=== PATIENT | male | born 1965 ===

== ENCOUNTER 2020-03-12 03:35 | Emergency (ER) | payer BC ==
[2020-03-12] MEDS ORDERED: ONDANSETRON HCL INJ/PF 4 MG/2 ML SDV IV ONE (04:56)
[2020-03-12] MEDS ORDERED: NORMAL SALINE 1000 ML 1,000 ML IV ONE (04:56)
[2020-03-12 05:32] LABS: ABSOLUTE LYMPHOCYTES (AUTO) 1.7 10^3/uL (0.5-4.7); ABSOLUTE MONOCYTES (AUTO) 0.6 10^3/uL (0.1-1.4); ABSOLUTE NEUT (AUTO) 2.3 10^3/uL (1.7-8.2); BASOPHILS % (AUTO) 0.5 % (0-2); HEMATOCRIT 49.6 % (37.9-51.0); HEMOGLOBIN 16.9 g/dL (13.5-17.0); LYMPHOCYTES % (AUTO) 37.1 % (13-45); MEAN CORPUSCULAR HEMOGLOBIN 30.1 pg (27.0-33.4); MEAN CORPUSCULAR VOLUME 88 fl (80-97); MONOCYTES % (AUTO) 13.5 % (3-13); PLATELET COUNT 147 10^3/uL (150-450); RED BLOOD COUNT 5.61 10^6/uL (4.35-5.55); SEGMENTED NEUTROPHILS % (AUTO) 48.9 % (42-78); TOTAL CELLS COUNTED % (AUTO) 100 %; WHITE BLOOD COUNT 4.6 10^3/uL (4.0-10.5)
[2020-03-12 05:53] LABS: ALKALINE PHOSPHATASE 56 U/L (38-126); ANION GAP 13 (5-19); ASPARTATE AMINO TRANSFERASE 68 U/L (17-59); BILIRUBIN,DIRECT 0.2 mg/dL (0.0-0.4); BILIRUBIN,TOTAL 1.3 mg/dL (0.2-1.3); BLOOD UREA NITROGEN 19 mg/dL (7-20); CALCIUM 8.8 mg/dL (8.4-10.2); CARBON DIOXIDE 21 mmol/L (22-30); CHLORIDE 101 mmol/L (98-107); GLUCOSE 114 mg/dL (75-110); POTASSIUM 4.3 mmol/L (3.6-5.0)
[2020-03-12 06:08] LABS: APPEARANCE,URINE SLIGHTLY-CLOUDY; BILIRUBIN,URINE NEGATIVE (NEGATIVE); COLOR,URINE YELLOW; GLUCOSE, URINE NEGATIVE (NEGATIVE); KETONES,URINE TRACE mg/dL (NEGATIVE); LEUKOCYTE ESTERASE,URINE NEGATIVE (NEGATIVE); NITRITE,URINE NEGATIVE (NEGATIVE); PROTEIN,URINE 30 mg/dL (NEGATIVE); URINE SPECIFIC GRAVITY 1.019
--- NOTE | 2020-03-12 06:32 | ER Document Report ---
ED General - General Chief Complaint: Flu Symptoms Stated Complaint: VOMITING/DIARREAH COVID + Time Seen by Provider: 03/12/20 06:30 Notes: Patient is a 54-year-old male who presents emergency department with a chief complaint of nausea, vomiting, and diarrhea. Patient also reports a cough denies any past medical history. He does not take any medications on regular basis. Patient is positive for COVID-19 at urgent care and was placed on azithromycin and prednisone. States that the cough is not as bad as it was, but he continues to have nausea, vomiting, and diarrhea. Denies any shortness of breath. - Related Data Allergies/Adverse Reactions: No Known Allergies Allergy (Unverified 03/12/20 05:11) Home Medications: lipitor Past Medical History - General Information source: Patient - Social History Smoking Status: Never Smoker Family History: Reviewed & Not Pertinent Review of Systems - Review of Systems Notes: REVIEW OF SYSTEMS: CONSTITUTIONAL : Denies recent illness. Denies recent unintentional weight loss. Denies fever, chills, or sweats. EENT: Denies eye, ear, throat, or mouth pain, discharge, or symptoms. Denies nasal or sinus congestion. CARDIOVASCULAR: Denies chest pain. RESPIRATORY: See HPI. GASTROINTESTINAL: See HPI. GENITOURINARY: Denies difficulty urinating, burning, blood in urine, urgency or frequency. MUSCULOSKELETAL: Denies neck and back pain. Denies joint pain or swelling. SKIN: Denies rash, itchiness, or lesions HEMATOLOGIC : Denies easy bruising or bleeding. LYMPHATIC: Denies swollen, painful, enlarged glands. NEUROLOGICAL: Denies no numbness or tingling denies weakness. Denies headache. Denies altered mental status. Denies alteration in speech. PSYCHIATRIC: Denies stress, anxiety, alteration in sleep patterns, or depression. All other systems reviewed and negative. Physical Exam - Vital signs Vitals: Temp Pulse Resp BP Pulse Ox 97.9 F 108 H 19 136/95 H 97 03/11/20 15:42 03/11/20 15:42 03/11/20 15:42 03/11/20 15:42 03/11/20 15:42 - Notes Notes: PHYSICAL EXAMINATION: GENERAL: Appears well, healthy, well-nourished, no acute distress. HEAD: Normocephalic, atraumatic. EYES: PERRL, conjunctiva normal, all extraocular movements intact, sclera nonicteric ENT: Moist mucous membranes. NECK: Supple, no noticeable swelling, redness, rash. Normal range of motion. LUNGS: Equal breath sounds bilaterally and clear to auscultation. No wheezes rales or rhonchi. CARDIOVASCULAR: S1-S2, regular rate, regular rhythm. Radial pulses 2+, normal. ABDOMEN: Normoactive bowel sounds. Soft, nontender, no guarding, no rebound tenderness, and no masses palpated. EXTREMITIES: Normal strength and range of motion, no pitting or edema. No cyanosis. NEUROLOGICAL: Moves all extremities upon command. Strength 5/5 in all extremities. PSYCH: Normal mood, normal affect. SKIN: Warm, dry. No rash, lesions, ulcerations noted. Normal skin turgor. Course - Re-evaluation Re-evalutation: 03/12/20 07:47 Patient reports that he does feel better after receiving the Phenergan. Will p.o. challenge the patient. Hematology does not show a leukocytosis. Sodium is 135, CO2 is 21. Patient received a liter of IV fluids. AST and ALT are elevated, consistent with his COVID-19 infection. Patient has trace leukocytes and protein in his urine. 03/12/20 07:55 Patient has a temperature of 100.8. We will give the patient some Tylenol and will reassess vital signs. Follow-up precautions were given. Verbal discharge instructions were given to the patient. They verbalized understanding. They are stable for discharge. - Vital Signs Vital signs: Temp Pulse Resp BP Pulse Ox 100.4 F 85 20 109/60 94 03/12/20 08:46 03/12/20 07:53 03/12/20 07:53 03/12/20 07:53 03/12/20 07:53 - Laboratory Results Result Diagrams: 03/12/20 05:17 03/12/20 05:17 Laboratory Results Interpreted: 03/12/20 03/12/20 03/12/20 05:17 05:17 05:56 RBC 5.61 H Plt Count 147 L [place] % (Auto) 13.5 H Sodium 135.1 L Carbon Dioxide 21 L Glucose 114 H AST 68 H ALT 92 H Urine Protein 30 H Urine Ketones TRACE H Urine Urobilinogen 2.0 H Critical Laboratory Results Reviewed: No Critical Results - Radiology Results Critical Radiology Results Reviewed: No Critical Results Discharge - Discharge Clinical Impression: Diarrhea due to COVID-19 Nausea and vomiting Qualifiers: Vomiting type: unspecified Vomiting Intractability: unspecified Qualified Code(s): R11.2 - Nausea with vomiting, unspecified Condition: Stable Disposition: HOME, SELF-CARE Instructions: Antinausea Medication ([facility]), Intravenous (IV) Fluids ([facility]), Vomiting ([facility]) Additional Instructions: You are seen today in the emergency department for nausea, vomiting, and diarrhea due to COVID-19. Take the Phenergan as needed for nausea or vomiting. Make sure you get plenty of rest. For your diarrhea, start on the BRAT diet: Ba nanas, rice, applesauce, and toast. This should help you significantly with your diarrhea. Prescriptions: Promethazine HCl [Phenergan 25 mg Tablet] 1 tab PO Q6H PRN #25 tablet PRN Reason:
[2020-03-12] MEDS ORDERED: PROMETHAZINE HCL INJ 25 MG/1 ML VIAL IV ONE (06:37)
[2020-03-12 07:54] VITALS: BP 109/60
--- NOTE | 2020-03-12 07:55 | RADIOLOGY REPORT (SQ) ---
CHEST X-RAY 1 VIEW on 03/12/2020 at 7:21 AM CLINICAL INDICATION: Cough, positive COVID 19 COMPARISON: None FINDINGS: There is mild left lower lung opacity consistent with atelectasis or early pneumonia and could represent early COVID 19 pneumonia. Cardiac, hilar and mediastinal contours are within normal limits. Pulmonary vascularity is within normal limits. No bony abnormality is noted. IMPRESSION: Mild left basilar atelectasis or early pneumonia and could represent early COVID 19 pneumonia.
[2020-03-12] MEDS ORDERED: ACETAMINOPHEN 325 MG TABLET PO ONE (08:01)
== END 2020-03-12 09:06 | disposition home or self-care (01) ==
LOC: ER 03:35
DX: U07.1 COVID-19 (principal); A08.39 Other viral enteritis; R11.2 Nausea with vomiting, unspecified; R05 Cough; R74.01 Elevation of levels of liver transaminase levels; Z79.899 Other long term (current) drug therapy
CPT/HCPCS: 99284; 96361; 96374; 96375; 36415; 85025; 80053; 81001; 71045; J2550; J2405; J7030

== ENCOUNTER 2020-03-14 11:59 | Emergency (ER) | payer BC ==
[2020-03-14] MEDS ORDERED: NORMAL SALINE 1000 ML 1,000 ML IV ONE (12:46)
[2020-03-14] MEDS ORDERED: PROMETHAZINE HCL INJ 25 MG/1 ML VIAL IV ONE (12:47)
--- NOTE | 2020-03-14 12:53 | ER Document Report ---
ED GI/ - General Chief Complaint: Nausea/Vomiting/Diarrhea Stated Complaint: VOMITING Time Seen by Provider: 03/14/20 12:30 Notes: CHIEF COMPLAINT: Vomiting, dehydration, diarrhea HPI: 54-year-old male presenting to the emergency department complaining of continued vomiting and diarrhea as well as dehydration. No fever. States cough is improved. Denies abdominal pain. Patient states he had a positive Covid test 11 days ago. States he was seen here 3 days ago for similar complaints. States he is taking his nausea medicine only twice daily under the tongue. He states it is not helping with the vomiting. Has not seen a primary care provider for reevaluation of symptoms ROS: See HPI - all other systems were reviewed and are otherwise negative Constitutional: no fever Eyes: no drainage, no blurred vision ENT: no runny nose, no sore throat Cardiovascular: no chest pain Resp: no SOB, + cough GI: + vomiting, + diarrhea, no abdominal pain : no dysuria Integumentary: no rash Allergy: no hives Musculoskeletal: no extremity pain or swelling Neurological: no numbness/tingling, no weakness MEDICATIONS: I agree with the patient medications as charted by the RN. ALLERGIES: I agree with the allergies as charted by the RN. PAST MEDICAL HISTORY/PAST SURGICAL HISTORY: Reviewed and agree as charted by RN. SOCIAL HISTORY: Reviewed and agree as charted by RN. FAMILY HISTORY: No significant familial comorbid conditions directly related to patient complaint EXAM: Reviewed vital signs as charted by RN. CONSTITUTIONAL: Alert and oriented and responds appropriately to questions. Well-appearing; well-nourished HEAD: Normocephalic; atraumatic EYES: PERRL; Conjunctivae clear, sclerae non-icteric ENT: normal nose; no rhinorrhea; moist mucous membranes; pharynx without lesions noted, no uvula edema or deviation, no tonsillar hypertrophy, phonation normal NECK: Supple without meningismus; non-tender; no cervical lymphadenopathy, no masses CARD: RRR; no murmurs, no clicks, no rubs, no gallops; symmetric distal pulses RESP: Normal chest excursion without splinting or tachypnea; breath sounds clear and equal bilaterally; no wheezes, no rhonchi, no rales, pulse oximetry 97% on room air not hypoxic ABD/GI: Normal bowel sounds; non-distended; soft, non-tender, no rebound, no guarding; no palpable organomegaly or masses. BACK: The back appears normal and is non-tender to palpation, there is no CVA tenderness EXT: Normal ROM in all joints; non-tender to palpation; no cyanosis, no effusions, no edema SKIN: Normal color for age and race; warm; dry; good turgor; no acute lesions noted NEURO: Moves all extremities equally; Motor and sensory function intact PSYCH: The patient's mood and manner are appropriate. Grooming and personal hygiene are appropriate. MDM: 54-year-old male presenting for continued vomiting and diarrhea in the setting of Covid. Has no abdominal pain on exam. Afebrile. Vital signs of 90 been entered by nursing. Will obtain baseline screening labs, his lab work 3 days ago did not show acute emergent abnormalities. Will give IV fluids, Phenergan here. Patient supposedly was discharged on Phenergan but that would not be taken twice daily under the tongue. Will discuss with patient whether he actually is taking the prescribed medication properly The patient was evaluated during the global COVID-19 pandemic and that diagnosis was suspected/considered upon their initial presentation. Their evaluation, treatment and testing was consistent with current guidelines for patients who present with complaints or symptoms that may be related to COVID-19 - Related Data Allergies/Adverse Reactions: No Known Allergies Allergy (Unverified 03/12/20 05:11) Home Medications: Atorvastatin. Peptobismol Past Medical History - Social History Smoking Status: Never Smoker Chew tobacco use (# tins/day): No Frequency of alcohol use: None Drug Abuse: None Family History: Reviewed & Not Pertinent Patient has homicidal ideation: No Physical Exam - Vital signs Vitals: Temp 97.8 F 03/14/20 12:00 Course - Re-evaluation Re-evalutation: 03/14/20 14:14 Tolerating oral fluids, will discharge when IV is complete - Vital Signs Vital signs: Temp Pulse Resp BP Pulse Ox 97.8 F 88 18 124/79 96 03/14/20 12:19 03/14/20 12:19 03/14/20 12:19 03/14/20 12:19 03/14/20 12:19 - Laboratory Results Result Diagrams: 03/14/20 13:02 03/14/20 13:02 Laboratory Results Interpreted: 03/14/20 03/14/20 13:02 13:02 Plt Count 124 L Lymph % (Auto) 12.2 L Seg Neutrophils % 81.8 H Sodium 133.4 L AST 85 H ALT 87 H Critical Laboratory Results Reviewed: No Critical Results - Radiology Results Critical Radiology Results Reviewed: No Critical Results Discharge - Discharge Clinical Impression: Nausea vomiting and diarrhea, Thrombocytopenia Condition: Stable Disposition: HOME, SELF-CARE Instructions: Vomiting ([facility]) Additional Instructions: Push fluids at home. Take the Phenergan every 6 hours for nausea vomiting. Do not drive if taking this medication as it can make you sleepy. Follow-up with primary care for further evaluation return for recurrent vomiting. You may take Kaopectate to help with diarrhea Prescriptions: Promethazine HCl [Phenergan 25 mg Tablet] 1 tab PO Q6H PRN #15 tablet PRN Reason: Referrals: PEDRO RICHEY MD [ACTIVE STAFF] - Follow up as needed
[2020-03-14 13:28] LABS: ABSOLUTE LYMPHOCYTES (AUTO) 0.8 10^3/uL (0.5-4.7); ABSOLUTE MONOCYTES (AUTO) 0.4 10^3/uL (0.1-1.4); ABSOLUTE NEUT (AUTO) 5.5 10^3/uL (1.7-8.2); BASOPHILS % (AUTO) 0.2 % (0-2); HEMATOCRIT 44.2 % (37.9-51.0); LYMPHOCYTES % (AUTO) 12.2 % (13-45); MEAN CORPUSCULAR HEMOGLOBIN 29.8 pg (27.0-33.4); MEAN CORPUSCULAR HGB CONC 33.8 g/dL (32.0-36.0); MEAN CORPUSCULAR VOLUME 88 fl (80-97); MONOCYTES % (AUTO) 5.8 % (3-13); PLATELET COUNT 124 10^3/uL (150-450); RED BLOOD COUNT 5.01 10^6/uL (4.35-5.55); SEGMENTED NEUTROPHILS % (AUTO) 81.8 % (42-78); TOTAL CELLS COUNTED % (AUTO) 100 %; WHITE BLOOD COUNT 6.7 10^3/uL (4.0-10.5)
[2020-03-14 13:46] LABS: ALBUMIN 3.9 g/dL (3.5-5.0); ALKALINE PHOSPHATASE 43 U/L (38-126); ANION GAP 6 (5-19); ASPARTATE AMINO TRANSFERASE 85 U/L (17-59); BILIRUBIN,DIRECT 0.3 mg/dL (0.0-0.4); BILIRUBIN,TOTAL 1.2 mg/dL (0.2-1.3); BLOOD UREA NITROGEN 17 mg/dL (7-20); CARBON DIOXIDE 29 mmol/L (22-30); CHLORIDE 98 mmol/L (98-107); GLUCOSE 94 mg/dL (75-110); TOTAL PROTEIN 7.1 g/dL (6.3-8.2)
[2020-03-14] MEDS ORDERED: ACETAMINOPHEN 325 MG TABLET PO ONE (14:31)
[2020-03-14 16:26] VITALS: BP 108/60
== END 2020-03-14 16:25 | disposition home or self-care (01) ==
LOC: ER 11:59
DX: R11.2 Nausea with vomiting, unspecified (principal); R19.7 Diarrhea, unspecified; D69.6 Thrombocytopenia, unspecified; E86.0 Dehydration; U07.1 COVID-19; Z79.899 Other long term (current) drug therapy
CPT/HCPCS: 99284; 96361; 96374; 36415; 85025; 80053; J2550; J7030